=== PATIENT | male | born 1935 | race Caucasian/White ===

== ENCOUNTER 2016-08-03 00:09 | Day surgery (SDC) | payer MEDICARE ==
[2016-08-03] VITALS (11 sets, daily range): BP systolic 107–153; BP diastolic 55–92; PULSE 64–68; RESP 16–20; O2SAT 93–95
[~2016-08-03 00:09] MED LIST: ATOR80TA PO; LISI-571 PO; MULT-1018 PO; RANI150C4 PO; VIT B 12 PO; VIT C PO; VIT D3 PO; WARF5TAB7 PO
[2016-08-03] MEDS ORDERED: CeFAZolin 2 Gm/50 mL D5W IV Premix IV ONE (10:08)
[2016-08-03] MEDS ORDERED: 0.9% Sodium Chloride 1,000 ML IV SCH (10:10)
[2016-08-03] MEDS ORDERED: OMEP20CA11 PO (13:46)
[2016-08-03] MEDS ORDERED: VITA400C66 PO (13:46)
[2016-08-03 13:48] LABS: BASOPHILS % (AUTO) 0.2 % (0-3); MONOCYTES % (AUTO) 14.3 % (4-12); Mean Corpuscular Hemoglobin 31.6 pg (27.0-35.0); Mean Corpuscular Volume 96.5 fL (81-100); NEUTROPHILS % (AUTO) 63.1 % (40-74); Platelet Count 157 bil/L (150-400)
[2016-08-03 14:04] LABS: INR 2.44 ratio
[2016-08-03] MEDS ORDERED: Heparin 5,000 Units/500 mL NS Premix IV ONE (14:11)
[2016-08-03] MEDS ORDERED: Bupivacaine-MPF 0.5% 30 mL Inj ONE (14:11)
[2016-08-03] MEDS ORDERED: 0.9% Sodium Chloride 1,000 ML ONE (14:11)
[2016-08-03] MEDS ORDERED: 0.9% Sodium Chloride 250 ML ONE (14:11)
[2016-08-03] MEDS ORDERED: fentaNYL-PF 50 mCg/mL 2 mL Inj ONE (14:56)
[2016-08-03] MEDS: 0.9% Sodium Chloride 1,000 ML IV SCH (16:29)
[2016-08-03] MEDS ORDERED: Ondansetron 2 mg/mL 2 mL Inj IVPUSH PRN (16:30)
[2016-08-03] MEDS ORDERED: CeFAZolin Inj 1 GM in IV Premix 1 EACH IV SCH (16:30)
--- NOTE | 2016-08-03 16:57 | DRSVH ---
PROCEDURE: X-RAY CHEST ONE VIEW, PORTABLE ([id number]) INDICATIONS: For new leads placed TECHNIQUE: One view of the chest was acquired. COMPARISON: ABHI Garcia, CHEST 2VW, 06/26/2014, 10:30 AM. FINDINGS: Surgical changes and devices: Left-sided pacer. Median sternotomy. Lungs and pleura: No pleural effusions or pneumothorax. Left hemidiaphragm is elevated. Left basilar atelectasis is unchanged. Mediastinum: Mediastinal contours appear normal. Heart size is normal. Bones and chest wall: No suspicious bony lesions. Overlying soft tissues appear unremarkable. IMPRESSION: No acute process. Dictated by: Victoriano Banda M.D. on 08/03/2016 at 16:55 Approved by: Victoriano Banda M.D. on 08/03/2016 at 16:55
--- NOTE | 2016-08-03 17:06 | NUR ---
ALDEN Pt returned from pacer placement at 1640. Pt AAOx4, denies pain/discomfort. VSS, see flow sheet. SR 60s with PVCs. L upper chest island dsg c/d/i, no drainage present; ice pack applied to site. Pt educated to LUE ROM restrictions. Family at bedside.
[2016-08-03] MEDS ORDERED: 0.9% Sodium Chloride 100 ML ONE (23:13)
[2016-08-03] MEDS: CeFAZolin Inj 1 GM in IV Premix 1 EACH IV SCH (23:20)
[2016-08-04 00:05] VITALS: BP 135/75; PULSE 63; RESP 20; O2SAT 94
--- NOTE | 2016-08-04 00:59 | OP ---
[address] [address] OPERATIVE REPORT PATIENT: AICHA RAYA : 1935 MR#: [id number] ADMIT: 08/03/2016 JOB ID: [id number] DATE OF SURGERY: 08/03/2016 PREOPERATIVE DIAGNOSIS(ES): 1. 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 2. Sick sinus syndrome. 3. [place] [employer] class III heart failure symptoms. POSTOPERATIVE DIAGNOSIS(ES): 1. 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 2. Sick sinus syndrome. 3. [place] [employer] class III heart failure symptoms. PROCEDURES PERFORMED: 1. Dual-chamber ICD implantation. 2. Left upper extremity venogram. 3. Fluoroscopy. SURGEON: Ronald Villagomez MD, hr director attending. MODEL BUILDER DISPLAY: IMPLANTED DEVICE: 1. [employer] pulse generator, model JC9766-48R, serial number [id number]. 2. Right atrial lead [employer] 2088TC, 52 cm, serial number [id number]. 3. RV ICD lead, single coil DF4, [employer] 7122Q, 58 cm, serial number [id number]. ANESTHESIA: Bolus dosing of Versed and fentanyl were utilized for appropriate level of sedation. INDICATION: The patient is a pleasant 80-year-old man with coronary artery disease, bypass grafting, severe ischemic cardiomyopathy, and sick sinus syndrome. After discussion of risks and benefits of ICD implantation for primary prevention of sudden cardiac arrest and treatment of his sick sinus syndrome, he opted to proceed. PROCEDURAL DESCRIPTION: Following informed consent, the patient was taken to the EP laboratory in a fasting, nonsedated state, where he was prepped and draped in usual sterile fashion. The left infraclavicular region was infiltrated with 40 cc of a 50/50 mixture of bupivacaine and lidocaine. Once adequate anesthesia had been achieved, a 3 cm transverse incision was performed 2 cm below the left clavicle. Dissection was carried down to the pectoralis fascia and a pocket was then fashioned using combination of electrocautery and blunt dissection. A left upper extremity venogram was performed. Under venographic guidance, the left axillary vein was cannulated over the first rib twice to two 0.035, 3 mm J guidewires. Over the first of these, a 7-[place]istani tear-away sheath was advanced. Once the guidewire was removed, an active fixation lead was advanced to the RV outflow tract and ultimately the RV apex. Extensive mapping was undertaken and ultimately adequate sensing and threshold was identified. The lead was affixed in position using its associated fixation screw. It was connected to the external analyzer and demonstrated appropriately sensed R waves, impedance, capture threshold. Lead was checked to 10 V and there was no evidence of diaphragmatic stimulation. Attention was now paid to placement of the right atrial lead. Over the previously deployed J guidewire, a 6-[place]istani tear-away sheath was advanced. Once the guidewire was removed, an active fixation lead was advanced to the right atrial appendage. It was affixed in position using its associated active fixation screw. The lead was connected to the external analyzer and demonstrated appropriately sensed P waves, impedance and capture threshold. Lead was checked to 10 V and there was no evidence of diaphragmatic stimulation. Once the position and redundancy of both leads was confirmed with multiple fluoroscopic views, the leads were anchored to the prepectoralis fascia using their associated anchoring sleeves and two heavy Ethibond sutures. The pocket was then copiously irrigated with antibiotic solution. The leads were connected to a generator and the generator was placed in the pocket and was affixed to the floor of the pocket using 1-0 Ti-Cron suture. The incision was then closed with running layers of absorbable suture. The wound was dressed with skin adhesive and a small dressing. At the end of procedure, the needle, sponge and instrument counts were all correct. COMPLICATIONS: None. ESTIMATED BLOOD LOSS: 5 cc. DEVICE MEASURED DATA: 1. Right atrial lead 3.5 mV, 440 ohms, 0.75 V at 0.5 msec. 2. RV lead 9.8 mV, 480 ohms, 0.5 V at 0.5 msec. FINAL PROGRAM PARAMETERS: 1. DDDR 60-130 beats per minute. 2. VT monitor zone 150 beats per minute. 3. VT2 zone 171 beats per minute with ATP followed by discharges. 4. VF zone at 187 beats per minute with ATP during charge followed by maximum output shocks. IMPRESSION: Successful dual-chamber internal cardioverter-defibrillator implantation. PLAN: 1. Stat portable chest x-ray. 2. PA and lateral chest x-ray. 3. Device interrogation. 4. IV Ancef through tomorrow. 5. Keflex x7 days. 6. Wound check in one week. ATTENDING STATEMENT: Ronald Villagomez MD, electrophysiology attending, was present for and supervised/performed all aspects of this procedure.
--- NOTE | 2016-08-04 01:04 | NUR ---
Admit to PCC/Pacer Pt admitted to PCC room 2024 around 1900, vitals checked and stable, left chest dressing viewed and had a tiny dot of drainage which has remained unchanged w/ reassessments. Pt's arm in sling and reminders given on avoiding excessive movement of left arm. Pt given Tylenol prior to arrival and reports pain controlled at 2-3/10 at incision site. Tele SR w/ APacing, rate in 60s, no c/o chest pain or SOB. Ongoing care. Addendum: 08/04/16 at 0621 by HILDA MADRID RN Pacer site unchanged, tele paced w/ PVCs, HR 60s-70s
[2016-08-04] MEDS: 0.9% Sodium Chloride 1,000 ML IV SCH (01:44)
[2016-08-04 03:26] VITALS: BP 135/82; PULSE 67; RESP 18; O2SAT 95
[2016-08-04 03:41] VITALS: PULSE 68
[2016-08-04 03:43] LABS: INR 2.63 ratio
[2016-08-04] MEDS: CeFAZolin Inj 1 GM in IV Premix 1 EACH IV SCH (06:30)
[2016-08-04 08:00] VITALS: BP 120/67; PULSE 70; PULSE 72; RESP 18; O2SAT 96
[2016-08-04] MEDS ORDERED: Ascorbic Acid 500 mg Tablet PO SCH (08:30)
--- NOTE | 2016-08-04 09:01 | PCM.DIMED ---
Discharge Instructions Date of Service Aug 04, 2016 Dates of Hospitalization Discharge Diagnosis Discharge Diagnosis Ischemic Cardiomyopathy LV Dysfunction Sinus Bradycardia Diet Heart Healthy Activity Other (Do not extend left arm high above shoulder for one month. Do not lift, push or pull more than 10 lbs with the left arm for one month.) Call your provider Fever or Chills, Bleeding, Excessive diarrhea Patient Instructions Follow-up in: 1 week Mid-level Provider (F9): Liam Jama PA-C Follow-up with Mid-level in: 6 weeks Liam Jama PA-C Aug 04, 2016 09:01
[2016-08-04] MEDS ORDERED: CEPH500C PO (09:12)
--- NOTE | 2016-08-04 09:44 | DRSVH ---
PROCEDURE: X-RAY CHEST, TWO VIEWS ([id number]) INDICATIONS: FOR NEW LEAD PLACEMENT. TECHNIQUE: Two views of the chest were acquired. COMPARISON: [facility], CR, XR CHEST 1VW (PORTABLE), 08/03/2016, 16:39. Alex Mcgraw, Erika R, CHEST 2VW, 06/26/2014, 10:30 AM. FINDINGS: Surgical changes and devices: Left-sided pacer. Median sternotomy. Lungs and pleura: No pleural effusions or pneumothorax. Left hemidiaphragm is elevated. Left basila r atelectasis is unchanged. Scarring within the mid right lung unchanged. Mediastinum: Mediastinal contours appear normal. Heart size is normal. Bones and chest wall: No suspicious bony lesions. Overlying soft tissues appear unremarkable. IMPRESSION: 1. Stable chest post pacer placement. Dictated by: Lloyd DUMONT Interpreted: Parul Rick MD on 08/04/2016 at 9:10 Transcribed by: RHINA on 08/04/2016 at 12:44 Approved by: Parul Rick MD, PhD on 08/04/2016 at 16:44
--- NOTE | 2016-08-04 13:38 | DIS ---
[address] [address] DISCHARGE SUMMARY PATIENT: AICHA RAYA : 1935 MR#: [id number] ADMIT: 08/03/2016 JOB ID: [id number] DIS: 08/04/2016 REASON FOR ADMISSION: Defibrillator implant. CHIEF COMPLAINT: Persistent slow heart rate and fatigue. BRIEF HISTORY: The patient is a pleasant 80-year-old man known to have coronary artery disease and bypass grafting on two previous occasions. He has a severe ischemic cardiomyopathy with a LV ejection fraction of 30%-35% and he also has sick sinus syndrome evidenced by persistent sinus bradycardia with rates in the 40s. He gets lightheaded at times but has not been syncopal. He was advised of his increased risk for cardiac arrest and of his indication for cardiac pacing and he wishes to move forward with an ICD implant. COURSE IN HOSPITAL: The patient was admitted to the [facility], taken to the lab instructor, where he received the dual-chamber ICD system without incident. He was taken back to the [facility] for recovery from sedation and then transferred up to the [facility] for overnight observation and telemetry monitoring. He did well overnight. In the morning was ambulatory without difficulty. Telemetry showed normal device function and no ventricular arrhythmias. Device evaluation showed excellent atrial and ventricular capture and sensing thresholds. He has been paced 51% of the time at 60 beats per minute. Chest x-ray showed good lead positions and no pneumothorax. He has had only minor incisional pain and has no complaints of dizziness or dyspnea or chest pain this morning. DISPOSITION: The patient was discharged home in good condition with a follow up appointment at the [facility] Cardiology office in one week. He was asked to not extend his left elbow above his shoulder for one month and not to lift, push or pull more than 10 pounds with the left arm for one month. He may shower beginning tomorrow. He will follow his heart healthy diet and take medications as prescribed. DISCHARGE MEDICATIONS: 1. Cephalexin 500 mg b.i.d. 2. Atorvastatin 80 mg daily. 3. Lisinopril 10 mg daily. 4. Multivitamin one daily. 5. Omeprazole 20 mg daily. 6. Vitamin E 400 units daily. 7. Warfarin 5 mg or as directed by his Anticoagulation Clinic. 8. Vitamin B12 1000 mg daily. 9. Vitamin C 500 mg daily. 10. Vitamin D3 1000 mg daily. FINAL DIAGNOSES: 1. Ischemic cardiomyopathy. 2. Symptomatic sinus bradycardia.
--- NOTE | 2016-08-04 13:41 | NUR ---
Discharge: Given care notes r/t pacemakers, cephalexin. IVs d/c'd intact. Discussed meds/discharge instructions/activity precautions with pt/spouse. Understanding verbalized. D/c'd home with all personal belongings, providing transport.
== END 2016-08-04 11:44 | disposition home or self-care (01) ==
LOC: SOUO 00:09 → PCC 17:44 → SOUO 08-04 11:44
PROVIDERS: ATTEND Internal Medicine Cardiovascular Disease
DX: I25.5 Ischemic cardiomyopathy (principal); Z00.6 Encounter for examination for normal comparison and control in clinical research program; I49.5 Sick sinus syndrome; I25.10 Atherosclerotic heart disease of native coronary artery without angina pectoris; Z95.1 Presence of aortocoronary bypass graft; Z79.01 Long term (current) use of anticoagulants
CPT/HCPCS: 33249; 71010; 71020; 80048; 85025; 85610; 93005; 99152; 99153; C1721; C1769; C1777; C1892; C1898; J0690; J1644; J2250; J3010; J7050; Q9967